=== PATIENT | female | born 1975 ===

== ENCOUNTER 2021-03-30 11:48 | Day surgery (SDC) | payer OTHER | END 2021-03-30 16:25 | disposition home or self-care (01) | LOC: AMB-ENDOS 11:48 | PROVIDERS: ATTEND Surgery | DX: C20 Malignant neoplasm of rectum (principal); D12.8 Benign neoplasm of rectum; Z20.822 Contact with and (suspected) exposure to COVID-19 ==

== ENCOUNTER 2021-05-12 08:45 | Inpatient (IN) | payer OTHER ==
[2021-05-12] MEDS ORDERED: COZAAR50 MG (12:17)
[2021-05-12] MEDS ORDERED: LEVOTHYROXINE25 MCG (12:17)
[2021-05-12] MEDS ORDERED: HYDROCHLOROTH12.5 MG (12:18)
[2021-05-20] MEDS ORDERED: GABAPENTIN300 MG PO (11:14)
[2021-05-20] MEDS ORDERED: PROTONIX40 MG PO (11:15)
[2021-05-20] MEDS ORDERED: PERCOCET 5-3251 EACH PO (11:15)
== END 2021-05-20 13:25 | disposition home or self-care (01) | DRG 330 ==
LOC: SURH 05-13 08:45 → O/R 05-13 12:18 → SURG 05-13 12:18 → SURH 05-13 17:00 → SURG 05-14 08:35 → SURH 05-14 11:13 → SURG 05-14 21:48
PROVIDERS: Urology; ADMIT Surgery; ATTEND Surgery
PROC: 0WJG4ZZ Inspection of Peritoneal Cavity, Percutaneous Endoscopic Approach (ICD-10-PCS; 2021-05-13)
PROC: 0DTP0ZZ Resection of Rectum, Open Approach (ICD-10-PCS; 2021-05-13)
PROC: 0DNM0ZZ Release Descending Colon, Open Approach (ICD-10-PCS; 2021-05-13)
PROC: 0DNW0ZZ Release Peritoneum, Open Approach (ICD-10-PCS; 2021-05-13)
PROC: 0DBB0ZZ Excision of Ileum, Open Approach (ICD-10-PCS; 2021-05-13)
PROC: 0DQ80ZZ Repair Small Intestine, Open Approach (ICD-10-PCS; 2021-05-13)
PROC: 0TH983Z Insertion of Infusion Device into Ureter, Via Natural or Artificial Opening Endoscopic (ICD-10-PCS; 2021-05-13)
PROC: 0DJD8ZZ Inspection of Lower Intestinal Tract, Via Natural or Artificial Opening Endoscopic (ICD-10-PCS; 2021-05-13)
PROC: 0DSB0ZZ Reposition Ileum, Open Approach (ICD-10-PCS; principal; 2021-05-13 17:00)
PROC: 0DTJ0ZZ Resection of Appendix, Open Approach (ICD-10-PCS; 2021-05-13 17:00)
PROC: 30233N1 Transfusion of Nonautologous Red Blood Cells into Peripheral Vein, Percutaneous Approach (ICD-10-PCS; 2021-05-16)
DX: C20 Malignant neoplasm of rectum (principal); K56.51 Intestinal adhesions [bands], with partial obstruction; K91.71 Accidental puncture and laceration of a digestive system organ or structure during a digestive system procedure; D62 Acute posthemorrhagic anemia; K63.89 Other specified diseases of intestine; N99.81 Other intraoperative complications of genitourinary system; D12.1 Benign neoplasm of appendix; Z20.822 Contact with and (suspected) exposure to COVID-19

== ENCOUNTER 2021-07-20 09:15 | Inpatient (IN) | payer OTHER ==
[~2021-07-20] VITALS: Ht 162.6 cm; Wt 57.6 kg
[~2021-07-20 09:15] MED LIST: COZAAR50 MG; GABAPENTIN300 MG PO; HYDROCHLOROTH12.5 MG; LEVOTHYROXINE25 MCG; PERCOCET 5-3251 EACH PO; PROTONIX40 MG PO
[2021-07-24] MEDS ORDERED: PERCOCET 5-3251 EACH PO (17:08)
== END 2021-07-24 19:55 | disposition home or self-care (01) | DRG 330 ==
LOC: SURH 07-22 07:45 → O/R 07-22 07:45 → SURH 07-22 09:15
PROVIDERS: ADMIT Surgery; ATTEND Surgery
PROC: 0DQ80ZZ Repair Small Intestine, Open Approach (ICD-10-PCS; 2021-07-22)
PROC: 0DBB0ZZ Excision of Ileum, Open Approach (ICD-10-PCS; principal; 2021-07-22 14:15)
DX: Z43.2 Encounter for attention to ileostomy (principal); C20 Malignant neoplasm of rectum; K62.5 Hemorrhage of anus and rectum; N73.6 Female pelvic peritoneal adhesions (postinfective); N99.4 Postprocedural pelvic peritoneal adhesions

== ENCOUNTER 2021-07-28 23:38 | Emergency (ER) | payer OTHER ==
[~2021-07-28] VITALS: Ht 162.6 cm; Wt 54.4 kg
== END 2021-07-29 16:11 | disposition home or self-care (01) ==
LOC: ER 23:38
DX: K59.09 Other constipation (principal); R10.84 Generalized abdominal pain; K29.70 Gastritis, unspecified, without bleeding